=== PATIENT | female | born 1990 | race Caucasian/White ===

== ENCOUNTER 2016-06-26 11:41 | Outpatient (CLI) | payer MEDICAID ==
[~2016-06-26 11:41] MED LIST: CALC750T4; DOXY1TAB3 PO; PREN1TAB73 PO
[2016-06-26 12:59] LABS: HCT - HEMATOCRIT 31.1 % (36-46); HGB - HEMOGLOBIN 9.9 GM/DL (12-16); MEAN CORPUSCULAR HGB 29.5 UUG (26-34); MEAN CORPUSCULAR HGB CONC(MCHC 31.8 GM/DL (31-37); MEAN CORPUSCULAR VOLUME 92.6 UM3 (80-100); MEAN PLATELET VOLUME 10.9 UM3 (9.4-12.4); RED BLOOD COUNT 3.36 M/MM3 (4.00-5.20); WBC - WHITE BLOOD COUNT 8.8 T/MM3 (4.5-11.0)
--- NOTE | 2016-06-26 13:20 | PNPDOC ---
Progress Note Date 06/26/16 Bedside sono by me shows footling breech. Discussed external version, potential risks, options. External version attempted, head moved to maternal right but breech would not move. Pt tolerated procedure well, FHTs reassuring by US throughout and now by ext monitoring. Reviewed CD with pt, Will schedule for 39 weeks. TANO MONTAGUE MD June 26, 2016 13:20
--- NOTE | 2016-06-26 13:35 | NUR ---
Procedure: Pt here for external version. Pt was admitted and IV lock placed. FHT were reactive. Dr. Aaron at bedside and version attempted from [id number]. Version failed. Dr. Aaron discussed options with pt and scheduled her for C/S. Pt to f/u in office next week. RN having pt fill out paperwork. Pt will then be discharged to home.
--- NOTE | 2016-06-26 14:37 | NUR ---
Discharge: Instructions were reviewed by Dr. Aaron. F/u with her in the office next week and will discuss further scheduled C/S. Pt informed to call [facility] unit if signs of labor or LOF or ctx pain increases. Pt was escorted off unit.
== END 2016-06-26 14:20 | disposition home or self-care (01) ==
LOC: SCU 11:41 → MC 11:41 → SCU 14:20
PROVIDERS: ATTEND Obstetrics & Gynecology
DX: O32.8XX0 Maternal care for other malpresentation of fetus, not applicable or unspecified (principal); Z3A.37 37 weeks gestation of pregnancy
CPT/HCPCS: 36415; 59412; 85027; 86850; 86900; 86901

== ENCOUNTER 2016-07-10 09:55 | Inpatient (IN) | payer MEDICAID ==
[~2016-07-10] VITALS: Ht 170.2 cm; Wt 102.5 kg
[~2016-07-10 09:55] MED LIST changes: -DOXY1TAB3 PO
[2016-07-10] MEDS ORDERED: LR 1,000 ML IV PRN (10:01)
--- OUTSIDE RECORDS SUMMARY | 2016-07-10 10:04 | XMS REPORT | Continuity of Care Document ---
Author Author [facility] Organization [facility] Address Unknown Phone Unavailable Care Team Providers Care Sorter Upholstery Parts Name Role Phone JOSEE VARGAS Primary Care Physician [phone] Insurance Providers Guarantor Karen Perez Address [address] [place] [address] Email [email or web address] Payer [facility] Community Plan Policy Number [id number] Subscriber's Name Karen Perez Relationship 18 Self Effective Date 16 Expiration Date 16 Advance Directives Directive Response Recorded Date/Time Ordered Resuscitation Status Full Code 06/26/16 12:32pm Problems Past Problems Medical Problem Onset Date Hyperemesis gravidarum Unknown Medications Current Home Medications Medication Dose Units Route Directions Days Qty Instructions Start Date Calcium Carbonate (Tums) 300 Mg Tab.chew 06/23/16 Pnv95/Ferrous Fumarate/Fa ( Tablet) 1 Each Tablet 1 Tab Oral Daily 01/01/16 Social History Social History Problem Response Recorded Date/Time Onset Date Status Reason for Hospitalization external version 06/26/2016 2:35pm Not Applicable Not Applicable Chewing Tobacco Status No 06/23/2016 12:10pm Not Applicable Not Applicable Hx Substance Use No 06/23/2016 12:10pm Not Applicable Not Applicable Hx Alcohol Use Y OCCASIONALLY, NOT WHILE 06/23/2016 12:10pm Not Applicable Not Applicable Has the pt used tobacco in the last 12 months No 06/23/2016 12:10pm Not Applicable Not Applicable Query Response Start Date Stop Date Smoking Status Never smoker Hospital Discharge Instructions Instructions: Care Instructions: Reason for Hospitalization: external version I was in the hospital because (patient own words): to turn my baby Discharge Diet: Reg Discharge Activity: Normal Follow Up Appointments: With Dr. Aaron in one week Pending Lab / Results: No Pending Lab Wound/Incision Care: N/A Pain Management/Treatment: N/A Expected Signs/Symptoms: Call if ctx/cramping worsens Notify Physician If: see discharge instructions During Business Hours:: Please call the physician's office at After Business Hours:: Please call [phone] and have the movie shot camera operator page the physician. Condition at time of discharge: Good Plan of Care Discharge Date 06/26/16 2:20pm Instructions/Education Provided [facility] Prescriptions See Medication Section Functional Status Query Response Date Recorded Mobility Status Ambulatory June 26, 2016 2:35pm Assistive Devices None June 26, 2016 2:35pm Activity Limitations None June 26, 2016 2:35pm Feeding Ability Independent June 26, 2016 2:35pm Toileting Ability Independent June 26, 2016 2:35pm Grooming Ability Independent June 26, 2016 2:35pm Dressing Ability Independent June 26, 2016 2:35pm Driving Ability Independent June 26, 2016 2:35pm Housework Ability Independent June 26, 2016 2:35pm Meal Preparation Ability Independent June 26, 2016 2:35pm Stair Climbing Ability Independent June 26, 2016 2:35pm Cognitive/Perceptual Impairments None June 26, 2016 2:35pm Allergies, Adverse Reactions, Alerts No known allergies. Immunizations Query Response on File Recorded Date/Time Hx Influenza Vaccination Y NOVEMBER 2015 06/23/16 12:10pm Hx Influenza Vaccination Y NOVEMBER 2015 06/23/16 12:10pm Influenza Vaccine Hx 11/201501/01/16 12:16pm Vital Signs No known vital signs results. Results Laboratory Results Test Name Result Units Flags Reference Collection Date/Time Result Date/ Time Comments White Blood Count 8.8 T/MM3 4.5-11.0 06/26/2016 12:53pm 06/26/2016 12: 59pm Red Blood Count 3.36 M/MM3 L 4.00-5.20 06/26/2016 12:53pm 06/26/2016 12: 59pm Hemoglobin 9.9 GM/DL L 12-16 06/26/2016 12:53pm 06/26/2016 12:59pm Hematocrit 31.1 % L 36-46 06/26/2016 12:53pm 06/26/2016 12:59pm Mean Corpuscular Volume 92.6 UM3 80-100 06/26/2016 12:53pm 06/26/2016 12:59pm Mean Corpuscular Hemoglobin 29.5 UUG 26-34 06/26/2016 12:53pm 2016 12:59pm Mean Corpuscular Hemoglobin Concent 31.8 GM/DL 31-37 06/26/2016 12:53pm 06/26/2016 12:59pm RDW Standard Deviation 45.3 FL 36.9-50.2 06/26/2016 12:53pm 06/26/2016 12:59pm Platelet Count 181 T/MM3 130-400 06/26/2016 12:53pm 06/26/2016 12:59pm Mean Platelet Volume 10.9 UM3 9.4-12.4 06/26/2016 12:53pm 06/26/2016 12 :59pm Procedures Procedure Status Date Provider(s) External obstetrical version Active 06/26/16 TANO AARON MD Encounters Encounter Location Arrival/Admit Date Discharge/Depart Date Attending Provider Departed Clinic [facility] 06/26/16 11:41am 06/26/16 2:20pm TANO AARON MD
--- OUTSIDE RECORDS SUMMARY | 2016-07-10 10:04 | XMS REPORT | Continuity of Care Document ---
Author Author [facility] Organization [facility] Address Unknown Phone Unavailable Care Team Providers Care Second Hand Paper Machine Name Role Phone JOSEE VARGAS Primary Care Physician [phone] Insurance Providers Guarantor Karen Perez Address [address] [place] [address] Email [email or web address] Payer [facility] Community Plan Policy Number [id number] Subscriber's Name YanfranciscoKaren Browning Relationship 18 Self Effective Date 15 Expiration Date 16 Advance Directives Directive Response Recorded Date/Time Advanced Directives Type None 01/01/16 12:07pm Chief Complaint and Reason for Visit Chief Complaint General Reason for Visit Hyperemesis gravidarum Problems Past Problems Medical Problem Onset Date Hyperemesis gravidarum Unknown Medications Current Home Medications Medication Dose Units Route Directions Days Qty Instructions Start Date Doxylamine/Pyridoxine Hcl (Emma Shukla 10-10 Mg Tablet) 1 Each Tablet. 1 Tab Oral Twice A Day 01/01/16 Doxylamine/Pyridoxine Hcl (Emma Shukla 10-10 Mg Tablet) 1 Each Tablet. 2 Tab Oral Bedtime 01/01/16 Ondansetron (Ondansetron Odt) 4 Mg Tab.rapdis 4 Mg Oral As Needed 01/01/16 Pnv95/Ferrous Fumarate/Fa ( Tablet) 1 Each Tablet 1 Tab Oral Daily 01/01/16 Promethazine Hcl 25 Mg Tablet 25 Mg Oral As Needed 01/01/16 Social History Social History Problem Response Recorded Date/Time Onset Date Status Hx Substance Use No 01/01/2016 12:16pm Not Applicable Not Applicable Hx Alcohol Use Y OCCASIONALLY, NOT WHILE 01/01/2016 12:16pm Not Applicable Not Applicable Query Response Start Date Stop Date Smoking Status Former smoker Hospital Discharge Instructions No hospital discharge instructions. Plan of Care Discharge Date 01/01/16 2:27pm Disposition 01 DISCHARGED HOME, SELF-CARE Condition at Discharge Improved Instructions/Education Provided DI for Hyperemesis Gravidarum Prescriptions See Medication Section Referrals TANO DURON MD Address: [address] [place] [address] [address] [place] [phone] JOSEE VARGAS Address: [address] [place] [address] [address] [place], [place] [id number] Additional Instructions/Education Use your nausea meds previously prescribed to you at home. Care Plan and Goals Physician Care Plan Problem: Hyperemesis gravidarum Goal: Follow up with primary care provider Instructions: Take medications and follow care plan as discussed/written Functional Status No functional status results. Allergies, Adverse Reactions, Alerts No known allergies. Immunizations Query Response on File Recorded Date/Time Hx Influenza Vaccination Y NOVEMBER 2015 12/28/15 5:03pm Hx Influenza Vaccination Y NOVEMBER 2015 12/28/15 5:03pm Influenza Vaccine Hx 11/201501/01/16 12:16pm Vital Signs Acute Vital Signs Vital Response Date/Time Temperature (Fahrenheit) 98.4 deg F (96.8 - 99.1) 01/01/2016 12:07pm Temperature (Calculated Celsius) 36.40573 degrees C (36.0 - 37.3) 01/01/2016 12:07pm Pulse Rate (adult) 72 bpm (60 - 100) 01/01/2016 2:27pm Respiratory Rate 16 breaths/min (10 - 20) 01/01/2016 2:27pm O2 Sat by Pulse Oximetry 100 % (90 - 100) 01/01/2016 2:27pm Oxygen Delivery Method Room Air 12/28/2015 3:41pm Blood Pressure 102/62 mm Hg 01/01/2016 2:27pm Blood Pressure Source Automatic Cuff 12/28/2015 3:41pm Height (Feet) 5 feet 01/01/2016 12:07pm Height (Inches) 7.00 inches 01/01/2016 12:07pm Weight (Kilograms) 85.900 kg 01/01/2016 12:07pm Body Mass Index (BMI) 29.0 01/01/2016 12:07pm Results Laboratory Results Test Name Result Units Flags Reference Collection Date/Time Result Date/ Time Comments White Blood Count 11.1 T/MM3 H 4.5-11.0 11/26/2015 2:40pm 11/26/2015 3: 00pm Red Blood Count 4.17 M/MM3 4.00-5.20 11/26/2015 2:40pm 11/26/2015 3: 00pm Hemoglobin 13.1 GM/DL 12-16 11/26/2015 2:40pm 11/26/2015 3:00pm Hematocrit 38.4 % 36-46 11/26/2015 2:40pm 11/26/2015 3:00pm Mean Corpuscular Volume 92.1 UM3 80-100 11/26/2015 2:40pm 11/26/2015 3: 00pm Mean Corpuscular Hemoglobin 31.4 UUG 26-34 11/26/2015 2:40pm 2015 3:00pm Mean Corpuscular Hemoglobin Concent 34.1 GM/DL 31-37 11/26/2015 2:40pm 11/26/2015 3:00pm RDW Standard Deviation 41.2 FL 36.9-50.2 11/26/2015 2:40pm 11/26/2015 3 :00pm Platelet Count 235 T/MM3 130-400 11/26/2015 2:40pm 11/26/2015 3:00pm Mean Platelet Volume 10.4 UM3 9.4-12.4 11/26/2015 2:40pm 11/26/2015 3: 00pm Neutrophils (%) (Auto) 74.3 % H 33-66 11/26/2015 2:40pm 11/26/2015 3: 00pm Lymphocytes (%) (Auto) 20.7 % L 23-45 11/26/2015 2:40pm 11/26/2015 3: 00pm Monocytes (%) (Auto) 4.7 % 0-9.0 11/26/2015 2:40pm 11/26/2015 3:00pm Eosinophils (%) (Auto) 0.1 % 0-4 11/26/2015 2:40pm 11/26/2015 3:00pm Basophils (%) (Auto) 0.1 % 0-2 11/26/2015 2:40pm 11/26/2015 3:00pm Immature Granulocyte % (Auto) 0.1 % 0.0-0.5 11/26/2015 2:40pm 2015 3:00pm Absolute Neutrophils (auto) 8.3 T/MM3 H 1.8-7.7 11/26/2015 2:40pm 2015 3:00pm Absolute Lymphocytes (auto) 2.3 T/MM3 1-4.8 11/26/2015 2:40pm 2015 3:00pm Absolute Monocytes (auto) 0.5 T/MM3 0-0.8 11/26/2015 2:40pm 11/26/2015 3:00pm Absolute Eosinophils (auto) 0.0 T/MM3 0-0.5 11/26/2015 2:40pm 2015 3:00pm Absolute Basophils (auto) 0.0 T/MM3 0-0.2 11/26/2015 2:40pm 11/26/2015 3:00pm Absolute Immature Granulocyte (auto 0.01 T/MM3 0.00-0.03 11/26/2015 2: 40pm 11/26/2015 3:00pm Icterus Index < 2 0-7 11/26/2015 2:40pm 11/26/2015 3:10pm Chemistry Specimen Hemolysis < 15 0-25 11/26/2015 2:40pm 11/26/2015 3 :10pm 0-25: Specimen Exhibited No Hemolysis. Turbidity < 20 0-20 11/26/2015 2:40pm 11/26/2015 3:10pm Sodium Level 139 MEQ/L 134-144 11/26/2015 2:40pm 11/26/2015 3:10pm Potassium Level 3.9 MEQ/L 3.6-5 11/26/2015 2:40pm 11/26/2015 3:10pm Chloride Level 107 MEQ/L 98-107 11/26/2015 2:40pm 11/26/2015 3:10pm Carbon Dioxide Level 22 MEQ/L 22-30 11/26/2015 2:40pm 11/26/2015 3: 10pm Anion Gap 10 MEQ/L 5-15 11/26/2015 2:40pm 11/26/2015 3:10pm Blood Urea Nitrogen 8.0 MG/DL 7-17 11/26/2015 2:40pm 11/26/2015 3:10pm Creatinine 0.5 MG/DL L 0.7-1.2 11/26/2015 2:40pm 11/26/2015 3:10pm BUN/Creatinine Ratio 16 RATIO 6-26 11/26/2015 2:40pm 11/26/2015 3:10pm Glomerular Filtration Rate Calc 150 11/26/2015 2:40pm 11/26/2015 3: 10pm Glucose Level 79 MG/DL 65-110 11/26/2015 2:40pm 11/26/2015 3:10pm Calculated Osmolality 265 MOSM/KG 261-280 11/26/2015 2:40pm 11/26/2015 3:10pm Calcium Level 9.6 MG/DL 8.4-10.2 11/26/2015 2:40pm 11/26/2015 3:10pm Total Bilirubin 0.70 MG/DL 0.20-1.30 11/26/2015 2:40pm 11/26/2015 3: 10pm Alkaline Phosphatase 71 U/L 38-126 11/26/2015 2:40pm 11/26/2015 3:10pm Total Protein 6.9 G/DL 6.3-8.2 11/26/2015 2:40pm 11/26/2015 3:10pm Albumin 4.2 G/DL 3.5-5.0 11/26/2015 2:40pm 11/26/2015 3:10pm Globulin 2.7 G/DL 2.4-3.6 11/26/2015 2:40pm 11/26/2015 3:10pm Albumin/Globulin Ratio 1.6 RATIO 1.1-2.2 11/26/2015 2:40pm 11/26/2015 3 :10pm Aspartate Amino Transf (AST/SGOT) 16 U/L 14-36 11/26/2015 2:40pm 2015 3:10pm Alanine Aminotransferase (ALT/SGPT) 24 U/L 9-52 11/26/2015 2:40pm 11/25 3:10pm Thyroid Stimulating Hormone (TSH) 0.34 MIU/L L 0.47-4.68 11/26/2015 2: 40pm 11/26/2015 3:41pm Procedures Procedure Status Date Provider(s) COLLECT BLOOD FROM PICC Completed 11/26/15 TANO DURON MD [facility] METABOLIC PANEL Completed 11/26/15 ASSAY THYROID STIM HORMONE Completed 11/26/15 COMPLETE CBC W/AUTO DIFF WBC Completed 11/26/15 HYDRATE IV INFUSION ADD-ON Completed 11/26/15 HYDRATE IV INFUSION ADD-ON Completed 11/26/15 THER/PROPH/DIAG IV INF INIT Completed 11/26/15 TX/PRO/DX INJ NEW DRUG ADDON Completed 11/26/15 468709"INJECTION, DIMENHYDRINATE, UP TO 50 MG" Completed 11/26/15 889283"INJECTION, ONDANSETRON HYDROCHLORIDE, PER 1 MG" Completed 11/26/15491625"RINGERS LACTATE INFUSION, UP TO 1000 CC" Completed 11/26/15 D5LR 1000 ML Completed 11/26/15 Encounters Encounter Location Arrival/Admit Date Discharge/Depart Date Attending Provider Departed Emergency Room [facility] 01/01/16 12:05pm 01/01/16 2: 27pm MAGDY CAMACHO MD Departed [facility] 12/28/15 3:18pm 12/28/15 6:28pm GLYNN YU MD Departed [facility] 11/26/15 2:23pm 11/26/15 6:20pm TANO DURON MD Recent Diagnosis
[2016-07-10] MEDS ORDERED: CEFAZOLIN 2 GM in D5W 50ml 50 ML IV ONE (10:15)
[2016-07-10] MEDS ORDERED: LIDOCAINE 1% (10mg/ml) 2ml SDV ID PRN ×2 (10:15)
[2016-07-10] MEDS ORDERED: FAMOTIDINE 20mg IVPB 50 ML IV ONE ×2 (10:15)
[2016-07-10] MEDS ORDERED: NOZIN NASAL SWAB NS ONE (10:15)
[2016-07-10] MEDS ORDERED: CITRIC ACID/SODIUM CITRATE 30 ML PO ONE ×2 (10:15)
[2016-07-10] MEDS: LR 1,000 ML IV PRN ×2 (10:30→11:05)
[2016-07-10 10:34] VITALS: BP 118/70; PULSE 99; RESP 18; O2SAT 97
[2016-07-10 10:37] LABS: EOSINOPHILS % (AUTO) 0.1 % (0-4); HCT - HEMATOCRIT 30.3 % (36-46); HGB - HEMOGLOBIN 9.8 GM/DL (12-16); IMMATURE GRANULOCYTE # (AUTO) 0.02 T/MM3 (0.00-0.03); IMMATURE GRANULOCYTE % (AUTO) 0.2 % (0.0-0.5); LYMPHOCYTES # (AUTO) 1.3 T/MM3 (1-4.8); LYMPHOCYTES % (AUTO) 14.9 % (23-45); MEAN CORPUSCULAR HGB 28.7 UUG (26-34); MEAN CORPUSCULAR HGB CONC(MCHC 32.3 GM/DL (31-37); MEAN CORPUSCULAR VOLUME 88.9 UM3 (80-100); MONOCYTES # (AUTO) 0.5 T/MM3 (0-0.8); MONOCYTES % (AUTO) 6.1 % (0-9.0); NEUTROPHILS #(AUTO)-ABSOLUTE 6.9 T/MM3 (1.8-7.7); NEUTROPHILS % (AUTO) 78.7 % (33-66); RED BLOOD COUNT 3.41 M/MM3 (4.00-5.20); WBC - WHITE BLOOD COUNT 8.7 T/MM3 (4.5-11.0)
--- NOTE | 2016-07-10 11:16 | ANESOB ---
Epidural/ Date/Time DATE: 07/10/16 TIME: 11:14 Preop Diagnosis Procedure: Plan: Spinal Height: 5 ' 7.00 " Weight: 102.500 kg BMI: kg/m2 NPO since: mn P:1 Heart Rate: 132 Medications & Allergies Inpatient Medications Current Medications Medications (Trade) Dose Ordered Sig/Anshul Start Time Stop Time Status Last Admin Dose Admin Lactated Ringer's (Lactated Ringers) 1,000 ml @ 150 mls/hr Q6H40M PRN 07/10/16 10:01 07/10/16 11:05 150 MLS/HR Lidocaine HCl 0.2 mg 0.2 mg PRN PRN 07/10/16 10:15 Lactated Ringer's (Lactated Ringers) 1,000 ml @ 150 mls/hr Q6H40M PRN 07/10/16 10:01 UNV Lidocaine HCl (Xylocaine 1%) 0.2 mg PRN PRN 07/10/16 10:15 UNV Calcium Carbonate (Tums) 300 Mg Tab.chew, (Reported) Last Taken: on 07/09/162099 Pnv95/Ferrous Fumarate/FA ( Tablet) 1 Each Tablet, 1 TAB PO DAILY, (Reported) Last Taken: on 07/09/162099 Coded Allergies: No Known Allergies (Unverified , 07/07/16) Medical/Surgical History Anesthesia PMH: Reports: Obesity, Other, Reflux (WITH ), Seizures ( HX OF DUE TO HEAD TRAUMA-RESOLVED), Denies: *Diabetes, *Hypertension, Anesthesia Reactions, Arthritis, Asthma, CHF, Cancer, Clotting Problems, Glaucoma, Malignant Hyperthermia, Pacemaker, Renal Disease, Thyroid Disease Smoking Status: Former smoker (quit 2011) Does patient use chewing tobac: No Second Hand Exposure: No Substance Use Type: does not use Alcohol Intake: none HX of Last Menstrual Period: AUGUST 2015 Anesthesia Adverse Reactions: FOUND none Family Hx of Anesthesia Advers: none Hx of Motion Sickness: No Complications During : No (breach) Pertinent Findings Laboratory Tests 07/10/16 10:31 Physical Exam Respiratory: Lungs clear Cardiovascular: Regular rate, rhythm Airway Assessment Mallampati Score: II TMD: 3 Fingerbreadths Neck Extension: Good Overall Assessment: No Airway Concerns ASA: 2 Discussion Discussed risks/options/alternatives of anesthesia. Patient consents. Nursing pain assessment noted. Present for Discussion: Present: Family Member Attestation Statement Prior to the delivery of any anesthetic medication, I examined the patient, developed the plan, obtained the patient's consent and discussed the risk and benefits of the procedure with the patient/guardian. If the note happens to be signed after anesthesia start time, it is only due to providing efficient care of the patient and documenting at a time when the computer is available. MARIA LUISA ELIAS PRE SCHOOL MANAGER July 10, 2016 11:16
[2016-07-10] MEDS ORDERED: FENTANYL 100mcg/2ml INJECTION ONE (11:44)
[2016-07-10] MEDS ORDERED: MORPHINE SULFATE PF 5mg/10ml VL (DURAMORPH) ONE (11:44)
[2016-07-10] MEDS ORDERED: PHENYLEPHRINE 10mg/ml INJECTION ONE (11:55)
[2016-07-10] MEDS ORDERED: EPHEDRINE SULFATE 50mg/ml INJECTION ONE (11:57)
--- NOTE | 2016-07-10 12:08 | NUR ---
CPN: Centricity was unable to trace on the computer. Paper strip on chart. FHT reactive. Dr. Aaron aware. Addendum: 07/10/16 at 1209 by APRIL COTA RN Amended: Links added.
[2016-07-10] MEDS ORDERED: ONDANSETRON 4mg/2ml INJECTION ONE (12:35)
[2016-07-10] MEDS ORDERED: OXYTOCIN 30 UNIT in D5LR 500 ML IV SCH (12:42)
[2016-07-10] MEDS ORDERED: DiphenhydrAMINE 25 MG CAPSULE PO PRN (12:45)
[2016-07-10] MEDS ORDERED: MILK OF MAGNESIA 30 ML SUSP PO PRN (12:45)
[2016-07-10] MEDS ORDERED: CALCIUM CARBONATE 500mg Chewable TAB PO PRN (12:45)
[2016-07-10] MEDS ORDERED: ACETAMINOPHEN 500 MG TABLET PO PRN (12:45)
[2016-07-10] MEDS ORDERED: HYDROCORTISONE 2.5% CREAM 30 GM RECTALLY PRN (12:45)
[2016-07-10] MEDS ORDERED: ONDANSETRON 4mg/2ml INJECTION IV PRN (13:00)
[2016-07-10] MEDS: SIMETHICONE 80 MG CHEWABLE TABLET PO CHEW SCH ×3 (13:00→22:49)
[2016-07-10] MEDS ORDERED: NALOXONE 0.4mg/ml INJECTION IV PRN (13:00)
[2016-07-10] MEDS ORDERED: DiphenhydrAMINE 50 MG/ML INJECTION IV PRN (13:00)
[2016-07-10] MEDS ORDERED: NALBUPHINE 10mg/ml INJECTION IV PRN (13:00)
[2016-07-10] MEDS ORDERED: METOCLOPRAMIDE 10mg/2ml INJECTION IV PRN (13:00)
[2016-07-10] MEDS: D5LR 1,000 ML IV SCH ×2 (13:10→22:42)
[2016-07-10 13:52] VITALS: O2SAT 93
[2016-07-10] MEDS: IBUPROFEN 800 MG TABLET PO SCH ×2 (14:13→22:49)
[2016-07-10] MEDS: HYDROCODONE/APAP 5 mg/325 mg TABLET PO PRN ×2 (14:14→22:52)
--- NOTE | 2016-07-10 15:54 | OPNOTEF ---
DATE OF OPERATION 07/10/2016 PREOPERATIVE DIAGNOSIS 1. Term . 2. Double footling breech presentation. POSTOPERATIVE DIAGNOSIS 1. Term . 2. Double footling breech presentation. PROCEDURES Primary low transverse section. SURGEON Jyoti Aaron MD NON LICENSED NUCLEAR EQUIPMENT OPERATOR Meera Meza MD ANESTHESIA Combo spinal/epidural FOREIGN BANKNOTE TELLER TRADER Cornell Mujica CRNA EBL 700 mL DESCRIPTION OF PROCEDURE Mrs. Perez was brought to the OR and given regional analgesia to good effect. She was then placed in the supine position with left lateral displacement. A Herman catheter was placed to dependent drain and SCDs bilaterally were placed. The abdomen was then prepped and draped in the usual sterile fashion. A Pfannenstiel skin incision was made with a sharp knife. This was carried down to fascia. Fascia was incised transversely. Fascia was then tented up. This was bluntly and sharply dissected free of rectus muscles. Rectus muscles were bluntly divided. Peritoneum was tented up and sharply entered. This was extended vertically. The bladder blade was inserted. The vesicouterine fold of peritoneum was tented up and incised transversely then bluntly dissected free of the lower uterine segment. The bladder blade was reinserted to protect the bladder. A low transverse uterine incision was made with a sharp knife. There was clear amniotic fluid. This was extended bluntly vertically with my fingers. The feet were delivered, the arms were reduced, the head was a little bit difficult to deliver but was forthcoming. Baby was then bulb suctioned on the abdomen. Cord was doubly clamped and the baby was given to Dr. Padilla and his team for care. This is a liveborn female with Apgars of 8/9/9, weighing 7 pounds, 9.3 ounces. The placenta was then expressed intact. It had a normal mature configuration and a normal-appearing three-vessel cord. This was held per protocol. The uterine cavity was then swept clear of membranes and the uterus exteriorized. The myometrial incision was reapproximated with a running locking O Monocryl. There was an area of bleeding on the patient's right lateral incision. This was oversewn with a running locking O Monocryl for about a third of the total incision. At this point, hemostasis was under excellent control. Uterus, tubes and ovaries were noted to be grossly normal and were returned to the abdominal cavity. We again inspected for hemostasis throughout the remainder of the procedure; it remained under good control. We removed gross blood from the abdomen and continued our closure. The fascia was reapproximated with a running nonlocking 0 Vicryl. Skin edges were then reapproximated with subcuticular style 3-0 undyed Vicryl. The wound was dressed with Steri-Strips and a sterile dressing. Counts were correct postoperatively x2. The urine remained clear and free flowing throughout the procedure. Mrs. Perez and baby have just been transferred to recovery in stable condition. CANDI
--- NOTE | 2016-07-10 17:24 | PNPDOC ---
Progress Note Date 07/10/16 Pt having nausea, 2 episodes of vomiting. Reports good pain control AVSS Stable Will add scopolamine patch. Q&A TANO DURON MD July 10, 2016 17:23
[2016-07-10] MEDS ORDERED: SCOPOLAMINE 1.5 MG PATCH TD ONE (17:45)
--- NOTE | 2016-07-10 19:11 | ANESPO ---
Post-Op Note Date 07/10/16 Time: 19:10 Status Pt Participated in Evaluation: Pt participated in person Vital Signs Date Time Temp Pulse Resp B/P Pulse Ox O2 Delivery O2 Flow Rate FiO2 07/10/16 13:52 93 Room Air 07/10/16 10:34 99 18 118/70 Respiratory Function: Airway patent, Regular respirations Cardiovascular Function: Regular pulse Mental Status: Alert/oriented Pain Level Intensity: 3 Hydration: Taking po fluids, Nausea Complications during Recovery None apparent Follow-Up Instructions Instructions Per Surgeon EDIE LIU CRNA July 10, 2016 19:11
[2016-07-10 20:06] VITALS: BP 106/67; PULSE 71; RESP 18; TEMP 97.5; O2SAT 99
--- NOTE | 2016-07-10 22:08 | NUR ---
Shift Summary: Pt was admitted for scheduled C/S for breech presentation. Surgery went well with no complications. Post- op VSS, bleeding has been minimal, fundus is firm. Dressing dry and intact. Pt has had some dizziness and nausea, Dr. Aaron ordered a scopolamine patch and that has seemed to help. Pt is still on clear liquid diet. Oral pain meds given. is going well. latches and suckles well, she had been feeding frequently this shift. Pt is resting well at this time.
[2016-07-10 22:30] VITALS: RESP 20; O2SAT 97
[2016-07-11] VITALS (7 sets, daily range): BP systolic 96–117; BP diastolic 57–67; PULSE 68–87; RESP 16–20; TEMP 97.2–98.2; O2SAT 96–99
[2016-07-11] MEDS: HYDROCODONE/APAP 5 mg/325 mg TABLET PO PRN ×4 (05:17→21:14)
[2016-07-11 07:08] LABS: HCT - HEMATOCRIT 28.1 % (36-46); HGB - HEMOGLOBIN 9.1 GM/DL (12-16); MEAN CORPUSCULAR HGB 29.2 UUG (26-34); MEAN CORPUSCULAR HGB CONC(MCHC 32.4 GM/DL (31-37); MEAN CORPUSCULAR VOLUME 90.1 UM3 (80-100); MEAN PLATELET VOLUME 11.1 UM3 (9.4-12.4); RED BLOOD COUNT 3.12 M/MM3 (4.00-5.20); WBC - WHITE BLOOD COUNT 10.2 T/MM3 (4.5-11.0)
--- NOTE | 2016-07-11 08:08 | PNPDOC ---
Progress Note PPD1 Rubella: Immune GBS: Negative Blood Type:O pos Subjective 07/11/16 Lochia: Minimal Pain: Controlled Voiding: Herman still in Place Nausea and Vomiting: No Nausea/Vomiting Objective Vital Signs Date Time Temp Pulse Resp B/P Pulse Ox O2 Delivery O2 Flow Rate FiO2 07/11/16 04:00 97.9 68 18 104/57 98 Room Air Urine Output: Good General: Alert and Oriented Abdomen: Fundus Firm, Non-tender Incision: Clean/Dry/Intact Extremities: Non-tender Laboratory Item Value Date Time White Blood Count 10.2 T/MM3 07/11/16 0659 Hemoglobin 9.1 GM/DL L 07/11/16 0659 White Blood Count 8.7 T/MM3 07/10/16 1031 Hemoglobin 9.8 GM/DL L 07/10/16 1031 Platelet Count 189 T/MM3 07/10/16 1031 Platelet Count 161 T/MM3 07/11/16 0659 Assessment SP, Primary C/S Plan Routine Care Expected date of discharge: July 12, 2016 TANO DURON MD July 11, 2016 08:08
[2016-07-11] MEDS: DOCUSATE CALCIUM 240 MG CAPSULE PO SCH (09:07)
[2016-07-11] MEDS: IBUPROFEN 800 MG TABLET PO SCH ×2 (09:07→16:55)
[2016-07-11] MEDS: FERROUS GLUCONATE 324 MG TABLET PO SCH (09:07)
--- NOTE | 2016-07-11 11:02 | NUR ---
CM THIS WORKER MET WITH PT ON THIS DATE. PT WAS LAYING IN BED AND HOLDING BABY. THIS WORKER INTRODUCED SELF AND ROLE OF CASE MANAGEMENT. PT REPORTED THAT SHE HAS GOOD SUPPORT FROM FOB AND EXTENDED FAMILY. MOTHER REPORTED THAT SHE HAD ALL THE NECESSARY ITEMS AT HOME FOR BABY. MOTHER DENIED NEEDS AT THIS TIME. MOTHER REPORTED THAT SHE HAS A BREAST PUMP FROM HER LAST BABY. MOTHER IS PLANNING TO ADD BABY TO THE INSURANCE. MOTHER PLANNING TO RETURN TO WORK IN ABOUT 6 WEEKS. NO CONCERNS NOTED AT THIS TIME. THIS WORKER ENCOURAGE MOTHER TO CONTACT THIS WORKER WITH ANY NEEDS/QUESTIONS. CONTACT INFORMATION LEFT WITH MOTHER.
[2016-07-11] MEDS: SIMETHICONE 80 MG CHEWABLE TABLET PO CHEW SCH ×4 (12:06→22:00)
[2016-07-12] MEDS: IBUPROFEN 800 MG TABLET PO SCH ×2 (01:12→08:49)
[2016-07-12] MEDS: HYDROCODONE/APAP 5 mg/325 mg TABLET PO PRN ×3 (01:13→12:31)
[2016-07-12 01:28] VITALS: BP 120/67; PULSE 73; RESP 18; TEMP 97.7; O2SAT 97
[2016-07-12 05:32] VITALS: BP 108/68; PULSE 71; RESP 16; TEMP 98; O2SAT 97
[2016-07-12] MEDS ORDERED: DOCU240C40 PO (08:16)
[2016-07-12] MEDS ORDERED: HYDR-4246 PO (08:16)
[2016-07-12] MEDS ORDERED: FERR324T PO (08:16)
[2016-07-12] MEDS ORDERED: IBUP-1547 PO (08:16)
[2016-07-12] MEDS: SIMETHICONE 80 MG CHEWABLE TABLET PO CHEW SCH ×2 (08:48→13:25)
[2016-07-12] MEDS: DOCUSATE CALCIUM 240 MG CAPSULE PO SCH (08:49)
[2016-07-12] MEDS: FERROUS GLUCONATE 324 MG TABLET PO SCH (08:50)
[2016-07-12 08:57] VITALS: BP 112/69; PULSE 79; RESP 18; TEMP 96.5; O2SAT 97
[2016-07-12 12:41] VITALS: BP 124/72; PULSE 91; RESP 16; TEMP 98.6; O2SAT 97
[2016-07-13] MEDS ORDERED: SCOPOLAMINE PATCH REMOVAL TD SCH (18:00)
== END 2016-07-12 16:30 | disposition home or self-care (01) | DRG 766 ==
LOC: MC 09:55
PROVIDERS: ADMIT Obstetrics & Gynecology; ATTEND Obstetrics & Gynecology
PROC: 10D00Z1 Extraction of Products of Conception, Low, Open Approach (ICD-10-PCS; principal; 2016-07-10 12:05)
DX: O32.8XX0 Maternal care for other malpresentation of fetus, not applicable or unspecified (principal); O99.02 Anemia complicating childbirth; Z3A.39 39 weeks gestation of pregnancy; Z37.0 Single live birth
CPT/HCPCS: 36415; 85025; 85027; 86850; 86900; 86901; 99464

== ENCOUNTER 2016-07-15 15:47 | Emergency (ER) | payer MEDICAID ==
[~2016-07-15] VITALS: Ht 171.4 cm; Wt 99.9 kg
[~2016-07-15 15:47] MED LIST changes: +DOCU240C40 PO; +FERR324T PO; +HYDR-4246 PO; +IBUP-1547 PO
[2016-07-15 15:50] VITALS: Ht 171.4 cm; Wt 99.9 kg
--- OUTSIDE RECORDS SUMMARY | 2016-07-15 15:52 | XMS REPORT | Continuity of Care Document ---
Author Author [facility] Organization [facility] Address Unknown Phone Unavailable Care Team Providers Care Program Writer Name Role Phone JOSEE VARGAS Primary Care Physician [phone] Insurance Providers Guarantor Karen Perez Address [address] [id number] Email [email or web address] Payer [facility] Community Plan Policy Number [id number] Subscriber's Name Karen Perez Relationship 18 Self Effective Date 16 Expiration Date 16 Advance Directives Directive Response Recorded Date/Time Ordered Resuscitation Status Full Code 07/10/16 10:05am Resuscitation Documents on File No 07/10/16 10:34am DPOA for Healthcare Only No 07/10/16 10:34am Living Will No 07/10/16 10:34am Problems Past Problems Medical Problem Onset Date Hyperemesis gravidarum Unknown Medications Current Home Medications Medication Dose Units Route Directions Days Qty Instructions Start Date Calcium Carbonate (Tums) 300 Mg Tab.chew 06/23/16 Docusate Calcium (Stool Softener) 240 Mg Capsule 240 Mg Oral Daily 30 Capsule 07/12/16 Ferrous Gluconate 324 Mg Tablet 324 Mg Oral Give With Breakfast 30 Tablet 07/12/16 Hydrocodone/Acetaminophen ([place] 5-325 Tablet) 5-325 Tablet 1-2 Tab Oral Every 4 Hours as needed for Pain 30 Tablet 07/12/16 Ibuprofen 800 Mg Tablet 800 Mg Oral Q8h @ 0000/0800/1600 40 Tablet 07/12/16 Pnv95/Ferrous Fumarate/Fa ( Tablet) 1 Each Tablet 1 Tab Oral Daily 01/01/16 Social History Social History Problem Response Recorded Date/Time Onset Date Status Reason for Hospitalization 07/12/2016 3:36pm Not Applicable Not Applicable Chewing Tobacco Status No 07/07/2016 10:54am Not Applicable Not Applicable Hx Substance Use No 07/10/2016 10:34am Not Applicable Not Applicable Hx Alcohol Use Y OCCASIONALLY, NOT WHILE 07/07/2016 10:54am Not Applicable Not Applicable Has the pt used tobacco in the last 12 months No 07/10/2016 10:34am Not Applicable Not Applicable Query Response Start Date Stop Date Smoking Status Former smoker Hospital Discharge Instructions Instructions: Care Instructions: Reason for Hospitalization: I was in the hospital because (patient own words): to have a baby Discharge Diet: Reg Discharge Activity: see dismissal instructions Follow Up Appointments: Follow up with Dr. Aaron in 1 week. Pending Lab / Results: No Pending Lab Wound/Incision Care: see dismissal instructions Pain Management/Treatment: see dismissal instructions Expected Signs/Symptoms: see dissmissal instructions Notify Physician If: see dismissal instructions During Business Hours:: Please call the physician's office at [phone] After Business Hours:: Please call [phone] and have the garment sewing machine operator page the physician. Condition at time of discharge: Good Plan of Care Discharge Date 07/12/16 4:30pm Disposition 01 DISCHARGED HOME, SELF-CARE Instructions/Education Provided [facility] Delivery Prescriptions See Medication Section Care Plan and Goals See Discharge Instructions Section Functional Status Query Response Date Recorded Mobility Status Ambulatory July 12, 2016 3:36pm Assistive Devices None July 12, 2016 3:36pm Activity Limitations None July 12, 2016 3:36pm Feeding Ability Independent July 12, 2016 3:36pm Toileting Ability Independent July 12, 2016 3:36pm Grooming Ability Independent July 12, 2016 3:36pm Dressing Ability Independent July 12, 2016 3:36pm Driving Ability Independent July 12, 2016 3:36pm Housework Ability Independent July 12, 2016 3:36pm Meal Preparation Ability Independent July 12, 2016 3:36pm Stair Climbing Ability Independent July 12, 2016 3:36pm Cognitive/Perceptual Impairments Impaired vision July 12, 2016 3:36pm Visual Assistive Devices Glasses July 10, 2016 12:05pm Allergies, Adverse Reactions, Alerts No known allergies. Immunizations Query Response on File Recorded Date/Time Hx Influenza Vaccination Y NOVEMBER 2015 07/07/16 10:54am Hx Pneumococcal Vaccination No 07/07/16 10:54am Hx Influenza Vaccination Y NOVEMBER 2015 07/07/16 10:54am Influenza Vaccine Hx 12/13/15 07/10/16 10:34am Tdap Vaccine Hx 06/12/16 07/10/16 10:34am Vital Signs Acute Vital Signs Vital Response Date/Time Temperature (Fahrenheit) 98.6 deg F (96.8 - 99.1) 07/12/2016 12:41pm Temperature (Calculated Celsius) 37.03914 degrees C (36.0 - 37.3) 07/12/2016 12:41pm Pulse Rate (adult) 91 bpm (60 - 100) 07/12/2016 12:41pm Respiratory Rate 16 breaths/min (10 - 20) 07/12/2016 12:41pm O2 Sat by Pulse Oximetry 97 % (90 - 100) 07/12/2016 12:41pm Oxygen Delivery Method Room Air 07/12/2016 12:41pm Blood Pressure 124/72 mm Hg 07/12/2016 12:41pm Blood Pressure Source Automatic Cuff 07/12/2016 12:41pm Height (Feet) 5 feet 07/10/2016 10:34am Height (Inches) 7.00 inches 07/10/2016 10:34am Weight (Kilograms) 102.500 kg 07/10/2016 10:34am Height 5 ft 7 in 07/10/2016 10:34am Weight 225.97 lb 07/10/2016 10:34am Body Mass Index 35.0 kg/m^2 07/10/2016 10:34am Results Laboratory Results Test Name Result Units Flags Reference Collection Date/Time Result Date/ Time Comments White Blood Count 10.2 T/MM3 4.5-11.0 07/11/2016 6:59am 07/11/2016 7: 08am Red Blood Count 3.12 M/MM3 L 4.00-5.20 07/11/2016 6:59am 07/11/2016 7: 08am Hemoglobin 9.1 GM/DL L 12-16 07/11/2016 6:59am 07/11/2016 7:08am Hematocrit 28.1 % L 36-46 07/11/2016 6:59am 07/11/2016 7:08am Mean Corpuscular Volume 90.1 UM3 80-100 07/11/2016 6:59am 07/11/2016 7: 08am Mean Corpuscular Hemoglobin 29.2 UUG 26-34 07/11/2016 6:59am 2016 7:08am Mean Corpuscular Hemoglobin Concent 32.4 GM/DL 31-37 07/11/2016 6:59am 07/11/2016 7:08am RDW Standard Deviation 45.6 FL 36.9-50.2 07/11/2016 6:59am 07/11/2016 7 :08am Platelet Count 161 T/MM3 130-400 07/11/2016 6:59am 07/11/2016 7:08am Mean Platelet Volume 11.1 UM3 9.4-12.4 07/11/2016 6:59am 07/11/2016 7: 08am Neutrophils (%) (Auto) 78.7 % H 33-66 07/10/2016 10:3107/10/2016 10: 37am Lymphocytes (%) (Auto) 14.9 % L 23-45 07/10/2016 10:3107/10/2016 10: 37am Monocytes (%) (Auto) 6.1 % 0-9.0 07/10/2016 10:07/10/2016 10:37am Eosinophils (%) (Auto) 0.1 % 0-4 07/10/2016 10:07/10/2016 10:37am Basophils (%) (Auto) 0.0 % 0-2 07/10/2016 10:07/10/2016 10:37am Immature Granulocyte % (Auto) 0.2 % 0.0-0.5 07/10/2016 10:312016 10:37am Absolute Neutrophils (auto) 6.9 T/MM3 1.8-7.7 07/10/2016 10:2016 10:37am Absolute Lymphocytes (auto) 1.3 T/MM3 1-4.8 07/10/2016 10:312016 10:37am Absolute Monocytes (auto) 0.5 T/MM3 0-0.8 07/10/2016 10:312016 10:37am Absolute Eosinophils (auto) 0.0 T/MM3 0-0.5 07/10/2016 10:31am 2016 10:37am Absolute Basophils (auto) 0.0 T/MM3 0-0.2 07/10/2016 10:31am 2016 10:37am Absolute Immature Granulocyte (auto 0.02 T/MM3 0.00-0.03 07/10/2016 10: 31am 07/10/2016 10:37am Procedures Procedure Status Date Provider(s) Routine venipuncture Completed 06/26/16 non-stress test Completed 06/26/16 Antepartum manipulation Completed 06/26/16 TANO AARON MD Complete cbc automated Completed 06/26/16 Rbc antibody screen Completed 06/26/16 Blood typing serologic abo Completed 06/26/16 Blood typing serologic rh(d) Completed 06/26/16 section Completed 07/10/16 TANO AARON MD Encounters Encounter Location Arrival/Admit Date Discharge/Depart Date Attending Provider Discharged Inpatient [facility] 07/10/16 9:55am 07/12/16 4:30pm TANO AARON MD Departed Clinic [facility] 06/26/16 11:41am 06/26/16 2:20pm TANO AARON MD
--- NOTE | 2016-07-15 16:01 | ERPDOC ---
Departure Disposition Decision Date: July 15, 2016 Disposition Decision Time: 17:25 Disposition: 01 DISCHARGED HOME, SELF-CARE Impression Impression Impression: Primary Impression: Superficial thrombophlebitis of leg Laterality: right Qualified Codes: I80.01 - Phlebitis and thrombophlebitis of superficial vessels of right lower extremity Severity: Moderate Condition: Stable Seen By: Mid-level only Referrals: JOSEE VARGAS (PCP) Patient Instructions: Superficial Thrombophlebitis (ED) Problems/Meds/Labs Reviewed?: Yes Medications reviewed and manag: Yes Additional Instructions: Your venous doppler indicated you have a thrombosed superficial vein. You do not have a deep vein thrombosed. You may take 600mg of ibuprofen every 8 hours for pain. Apply warm compress to affect area. Follow with your PCP for re-evaluation in one week, sooner if worsting symptoms. Follow treatment plan. Follow up care ordered?: Yes Mental Status: Alert, Oriented HPI - Lower Extremity General Chief Complaint: Lower Extremity Pain Stated Complaint: POSS BLOOD CLOT ON LEG Time Seen by Provider: 15:50 Source: patient HPI - Lower Extremity Initial Comments 25 YO F presents to ED with with complaint of right leg swelling and swollen area over medial, posterior thigh. Patient had a on 07-10-16 and had been dismissed home. Patient noticed her leg was swelling 2 days ago. Lump in leg she noticed during the night. Pain/Injury Location: right leg, right thigh Quality: aching Allergies: Coded Allergies: No Known Allergies (Unverified , 07/07/16) Past History Past Medical History Pt denies signifigant PMH Surgical History Reproductive/: Family History Family PMH: FOUND: other (noncontributory) Vaccines Hx Influenza Vaccination: Yes (NOVEMBER 2015) Hx Pneumococcal Vaccination: No Social History Does patient use chewing tobac: No Second Hand Exposure: No Substance Use Type: does not use Alcohol Intake: none Household Members: children Current Occupational Status: employed Current Occupation: hairdresser Review of Systems Constitutional Constitutional: DENIES: chills, dizziness, fever, weakness Eyes General: DENIES: erythema, exudate Lids/Accessories: DENIES: erythema, swelling ENMT Ears: DENIES: pain Sinuses: DENIES: congestion, rhinorrhea Mouth/Throat: DENIES: sore throat Cardiovascular Cardiac: DENIES: chest pain, murmur Rhythm/Rate: DENIES: palpitations Pulmonary Respiratory: DENIES: cough, dyspnea GI Upper Abdomen: DENIES: nausea, pain, vomiting Lower Abdomen: DENIES: diarrhea, pain General: DENIES: dysuria, pain Musculoskeletal General: pain, tenderness Integumentary Skin: DENIES: color change, itching, rash Neurological General: DENIES: ataxia, change in strength, numbness, paralysis/paresis, weakness Psychiatric Psychiatric: DENIES: anxiety, depression, nervousness Physical Exam General General Nourishment: well nourished, well developed, adult, obese General Body Habitus: well groomed Vitals and Pain First Documented Vital Signs Date Time Temp Pulse Resp B/P Pulse Ox O2 Delivery O2 Flow Rate FiO2 07/15/16 15:50 97.8 68 18 132/85 100 Room Air Weight: Kilograms: 99.900 Height (feet): 5 Height (inches): 7.50 Triage Pain Scale: Eyes (brief) Eyes Brief: found: EOMI ENMT (brief) ENMT Brief: NOT FOUND: nasal exudate, nasal swelling Neck (brief) Neck: FOUND: trachea midline Respiratory (brief) Respiratory: FOUND: clear all ponce, equal bilaterally, symmetrical Cardiovascular (brief) Cardiac: FOUND: regular rate, regular rhythm Musculoskeletal Extremity #1: Side: Right Extremity: thigh Extremity Findings: FOUND: pain (see below), swelling (see below), NOT FOUND : deformity, discoloration Comments Patient has marked bulging over superficial vein that is TTP distal medial, posterior thigh. Thigh is swollen larger than left thigh. Extremity #2: Side: Right Extremity: leg Extremity Findings: FOUND: swelling (Swelling of calf and leg), NOT FOUND: deformity, discoloration, pain Integumentary (brief) Integumentary Brief: FOUND: dry, pink, warm Neurologic (brief) Neurological Brief: FOUND: motor-no gross deficits, sensory-no gross deficits Psychiatric (brief) Psychiatric Brief: FOUND: alert, normal affect, oriented Differential Diagnoses Considering: Cellulitis, Contusion, DVT, Other (abscess,) Progress Results/Orders Orders Procedure Category Date Status Time Us Venous Duplex, US 07/15/16 Resulted Lower Ext Rt Progress Progress I discussed US report with Dr. Lowe. He felt that patient should use N-said and warm compress to superficial thrombus. I discussed treatment plan, close follow up with PCP and return precautions which patient verbalized understanding. Ultrasound US : Ultrasound: Venous Doppler Interpretation: Abnormal (no DVT, thrombosed superficial vein in the popiteal fossa) GLENIS WARD RESEARCH EPIDEMIOLOGIST July 15, 2016 16:01
[2016-07-15] MEDS ORDERED: DOCU240C25 PO (16:02)
--- NOTE | 2016-07-15 16:02 | NUR ---
PROVIDER Meaghan WARD APRN AT BEDSIDE FOR EXAM.
[2016-07-15] MEDS ORDERED: FERR324T PO (16:03)
[2016-07-15] MEDS ORDERED: IBUP-1547 PO (16:05)
[2016-07-15] MEDS ORDERED: HYDR-4246 PO (16:05)
--- NOTE | 2016-07-15 16:50 | NUR ---
SONO AT BEDSIDE.
--- NOTE | 2016-07-15 18:09 | NUR ---
PROVIDER Meaghan WARD APRN AT BEDSIDE TO SPEAK WITH PT.
[2016-07-15 18:34] VITALS: BP 134/83; PULSE 76; RESP 16; TEMP 98.7; O2SAT 98
--- NOTE | 2016-07-15 18:34 | NUR ---
DEPART PT AMBULATORY TO LOBBY WITH FAMILY AT THIS TIME. PT DENIES FURTHER QUESTIONS, VERBALIZES UNDERSTANDING TO INSTRUCTIONS WRITTEN/GIVEN.
--- NOTE | 2016-07-16 11:16 | DI ---
Indication: ITS.REASON: swelling lateral posterior thigh PROCEDURE: US VENOUS DUPLEX, LOWER EXT RT: Encounter: Initial Comparison: None Technique: Color Doppler duplex and grayscale sonographic imaging of the right lower extremity was performed. Findings: There is no evidence for acute deep venous thrombosis in the right thigh. Specifically, serial graded compression was performed from the inguinal ligament to the popliteal bifurcation, on the right thigh, demonstrating appropriate compressibility of the deep venous system. In addition, color and pulsed Doppler demonstrate appropriate spontaneous flow, variation with respiration, and augmentation with calf compression. At the ankle, normal flow is identified in the posterior tibial veins; these vessels are also normal in caliber. Thrombosis varicose superficial vein in the area of concern in the popliteal fossa. Impression: No evidence of acute DVT in the right lower limb. Superficial thrombophlebitis. There is a preliminary report by [facility]. .
== END 2016-07-15 18:34 | disposition home or self-care (01) ==
LOC: ED 15:47
DX: I80.01 Phlebitis and thrombophlebitis of superficial vessels of right lower extremity (principal)